=== PATIENT | female | born 1960 | race Caucasian/White ===

== ENCOUNTER 2019-03-10 06:06 | Day surgery (SDC) | payer MEDICAID ==
[~2019-03-10] VITALS: Ht 157.5 cm; Wt 65.5 kg
[2019-03-10] MEDS ORDERED: LIDOCAINE 4% 50 ML SOLUTION TP ONE (06:07)
[2019-03-10] MEDS ORDERED: ALBUTEROL SULFATE 2.5 MG/0.5 ML NEB SOLUTION NEB ONE (06:07)
[2019-03-10] MEDS ORDERED: LIDOCAINE 2% 30 ML JELLY TP ONE (06:07)
[2019-03-10] MEDS ORDERED: BENZOCAINE 20% 50 MCG/SPRAY 57 GM TP ONE (06:07)
[2019-03-10] MEDS ORDERED: SODIUM CHLORIDE 0.9% 1,000 ML IV ONE ×2 (06:20→07:00)
[2019-03-10] MEDS ORDERED: BECL10.62 IH (07:34)
[2019-03-10] MEDS ORDERED: FAMO20 PO (07:34)
[2019-03-10] MEDS ORDERED: IBUP-2070 PO (07:34)
[2019-03-10] MEDS ORDERED: TRAZ-252 PO (07:34)
[2019-03-10] MEDS ORDERED: FLUT16H NASAL (07:34)
[2019-03-10] MEDS ORDERED: CYCL10 PO (07:34)
[2019-03-10] MEDS ORDERED: BUPR-93 PO (07:34)
[2019-03-10] MEDS ORDERED: FentaNYL CITRATE-PF 100 MCG/2 ML VIAL ONE (08:00)
[2019-03-10] MEDS ORDERED: MIDAZOLAM HCL 2 MG/2 ML VIAL ONE (08:00)
[2019-03-10] MEDS ORDERED: MethylPREDNISolone SOD SUCC 125 MG/2 ML VIAL IVP ONE (09:15)
[2019-03-10] MEDS ORDERED: MethylPREDNISolone SOD SUCC 125 MG/2 ML VIAL ONE (09:30)
[2019-03-10] MEDS ORDERED: OXYGEN THERAPY IH SCH (20:00)
== END 2019-03-10 10:50 | disposition home or self-care (01) ==
LOC: SURGERY 06:06
PROVIDERS: ATTEND Internal Medicine Critical Care Medicine
DX: J38.4 Edema of larynx (principal); B37.0 Candidal stomatitis; K21.9 Gastro-esophageal reflux disease without esophagitis; Z87.891 Personal history of nicotine dependence; Z98.890 Other specified postprocedural states
CPT/HCPCS: 31623; 31624; 71045; 87015; 87070; 87101; 87205; 87206; 87220; 88108; 88312; J2250; J2930; J3010; J7030